=== PATIENT | female | born 1990 | race Caucasian/White ===

== ENCOUNTER 2019-02-22 06:50 | Inpatient (IN) | payer OTHER ==
[~2019-02-22] VITALS: Ht 160 cm; Wt 93.8 kg
[2019-02-22 07:12] VITALS: Ht 160 cm; Wt 93.8 kg
--- NOTE | 2019-02-22 07:55 | HP ---
Date/Time of Note Date/Time of Note DATE: 02/22/19 TIME: 07:49 OB - History Hx of Present Free Text/Dictation 28 YO with IUP at 39 weeks with EDC 03/01/2019 who reports to L&D in early labor. she is motivated to have unmedicated labor and she wants to be admitted in active labor. she declined augmentation/induction. she wants to reexamined and if her cervical exam did not change, then she would like to go home. she denies vaginal bleeding or loss of fluid per vagina. she report good movements. she denies headache, visual changes o RUQ pain. Care: Good Care Ultrasounds: Normal mid trimester US Obstetrical Complications: None Medical Complications: None Past Family/Social History * Past Medical, Surgical, Family and Obstetric Histories reviewed from chart. OB Admission Exam Physical Exam HEENT: WNL Heart: Rhythm Normal Lungs: Clear, Equal Abdomen: WNL Extremities: Normal Reflexes: Normal Cervical Dilatation: 2cm Effacement: Other (90%) Membranes: Intact Accelerations: Accelerations Present Decelerations: No Decelerations Varibility: Moderate OB Assessment/Plan Other Assessment: here for labor evaluation. IUP at 39 weeks Other plan: may be discharged if normal BPP and no cervical change ANDRES MOHAN MD Feb 22, 2019 07:55
[2019-02-22] MEDS: LACTATED RINGER'S 1,000 ML IV SCH ×3 (10:27→19:11)
[2019-02-22] MEDS ORDERED: METHYLERGONOVINE 0.2 MG INJ IM PRN (10:30)
[2019-02-22] MEDS ORDERED: BUTORPHANOL 2 MG INJ IV PRN (10:30)
[2019-02-22] MEDS ORDERED: CARBOPROST 250 MCG INJ IM PRN (10:30)
[2019-02-22] MEDS ORDERED: MISOPROSTOL 200 MCG TAB PR PRN (10:30)
[2019-02-22] MEDS ORDERED: OXYTOCIN 30 UNITS/LR 500 ML IV SCH ×2 (10:30)
[2019-02-22] MEDS ORDERED: LIDOCAINE 1% (MPF) 30 ML INJ INJ PRN (10:30)
[2019-02-22] MEDS ORDERED: OXYTOCIN 30 UNITS/LR 500 ML IV PRN ×2 (10:30→18:00)
--- NOTE | 2019-02-22 10:49 | PREAC ---
Date/Time of Note Date/Time of Note DATE: 02/22/19 TIME: 10:48 Anesthesia Eval and Record Evaluation Time Pre-Procedure Interview DATE: 02/22/19 TIME: 10:48 Age 28 Sex female NPO: 8 hrs Preoperative diagnosis intrauterine Planned procedure labor epidural Past Medical History Past Medical History: Includes : : (1), Para: (0), Gestational age: (39) Surgery & Anesthesia Issues No known issue Meds Anticoagulation: No Beta Ignacia within 24 hr: No Reason Beta Ignacia not given: Pt. not on B-Ignacia Current Medications Lactated Ringer's 1,000 ml @ 125 mls/hr Q8H IV Last administered on 02/22/19at 10:27; Admin Dose 125 MLS/HR; Start 02/22/19 at 10:18 Butorphanol Tartrate (Stadol) 2 mg Q2H PRN IV .PAIN SCALE 6-10; Start 02/22/19 at 10:30 Lidocaine (Xylocaine 1% (Mpf)) 30 ml ONCE PRN INJ .EPISIOTOMY; Start 02/22/19 at 10:30 Oxytocin/Lactated Ringer's 500 ml @ 500 mls/hr ONCE POST IV ; Start 02/22/19 at 10:30 Oxytocin/Lactated Ringer's 500 ml @ 125 mls/hr POST IV ; Start 02/22/19 at 10:30 Oxytocin/Lactated Ringer's 500 ml @ 0 mls/hr ONCE PRN IV .VAGINAL BLEEDING; Start 02/22/19 at 10:30 Methylergonovine Maleate (Methergine) 0.2 mg ONCE PRN IM .VAGINAL BLEEDING; Start 02/22/19 at 10:30 Carboprost Tromethamine (Hemabate) 250 mcg ONCE PRN IM .VAGINAL BLEEDING; Start 02/22/19 at 10:30 Misoprostol (Cytotec) 1,000 mcg ONCE PRN IL .VAGINAL BLEEDING; Start 02/22/19 at 10:30 Meds reviewed: Yes Allergies Coded Allergies: No Known Allergy (Unverified , 02/22/19) Allergies Reviewed: Yes Labs/Studies Labs Reviewed: Reviewed by anesthesiologist Result Diagram: 02/22/19 1020 Laboratory Tests 02/22/19 10:20 test: N/A Pre-procedure Exam Airway: Adequate mouth opening, Adequate thyromental dist Mallampati: Mallampati II Teeth: Normal Lung: Normal Heart: Normal ASA Physical Status ASA physical status: 2 Emergency: None Planned Anesthetic Neuraxial: Epidural Planned Pain Management Epidural Pre-operative Attestations Prior to commencing anesthesia and surgery, the patient was re-evaluated, there was verification of: *The patient's identity *The results of appropriate recent lab work and preoperative vital signs *The above evaluation not changing prior to induction *Anesthetic plan, risk benefits, alternative and complications discussed with patient/family; questions answered; patient/family understands, accepts and wishes to proceed. FATIMAH TROY MD Feb 22, 2019 10:49
[2019-02-22] MEDS ORDERED: ROPIVACAINE 0.2% 100 ML ONE (10:51)
[2019-02-22] MEDS ORDERED: DIPHENHYDRAMINE 50 MG INJ IV PRN (11:00)
[2019-02-22] MEDS ORDERED: ONDANSETRON 4 MG INJ IV PRN (11:00)
[2019-02-22] MEDS ORDERED: NALOXONE (0.4 MG/ML) INJ IV PRN (11:00)
--- NOTE | 2019-02-22 11:27 | PAC ---
Date/Time of Note Date/Time of Note DATE: 02/22/19 TIME: 11:23 Post-Anesthesia Notes Post-Anesthesia Note Activity: WNL Respiratory function: WNL Cardiovascular function: WNL Mental status: Baseline Pain reasonably controlled: Yes Hydration appropriate: Yes Nausea/Vomiting absent: Yes Comments BP: 120/72 HR: 72 RR: 15 SaO2: 100 T: 98 FATIMAH TROY MD Feb 22, 2019 11:27
[2019-02-22] MEDS: FENTAnyl 2MCG/ML-ROPIV 0.2% 100 ML BAG EPI SCH ×2 (16:43→21:28)
--- NOTE | 2019-02-22 23:56 | LDN ---
Date/Time of Note Date/Time of Note DATE: 02/22/19 TIME: 23:56 Delivery Summary 28 years old 3 para 0-0-2-0 with single intrauterine at 39 weeks with a BIMAL of 03/01/2019 delivered a viable male over first-degree left labia minora and second-degree vaginal laceration. Nose and mouth suctioned. Rest of body delivered. Cord clamped and cut after stopping pulsation. Baby given to the nurse. Placenta delivered spontaneously and intact with three-vessel cord. Laceration repaired with the 3-0 chromic with SH needle and 2-0 Vicryl. Patient tolerated procedure well Time of delivery 23:14 Weight 3605 g - 7 pound 15 ounces Height 19 3/4 inches 8 at 1 minutes and 9 at 5 minutes. EBL 250 mL Weeks of Gestation 39 weeks Placenta Delivered: Spontaneously Meconium: none Episiotomy: No Estimated blood loss: 250 Sponge & Needle done & correct: Yes All needle counts correct: Yes Any foreign bodies felt in the: No Infant Delivery Information Sex Sex: male Apgars 1 Minute: 8 5 Minute: 9 10 Minute: 10 Suctioning Nose & mouth suctioned at nelson: Yes Umbilical Cord Umbilical cord with: 3 Vessels Cord presentations: no nuchal cord Cord Blood was obtained: Yes Mother & Baby Disposition Disposition Mom & Baby to Maternity; Good: Yes ALECIA DUNBAR Feb 22, 2019 23:56
[2019-02-23] VITALS (7 sets, daily range): BP systolic 104–130; BP diastolic 33–83; PULSE 75–90; RESP 18–20
[2019-02-23] MEDS ORDERED: LACTATED RINGER'S 1,000 ML IV* SCH (01:22)
[2019-02-23] MEDS ORDERED: DEXTROSE 5%-LR 1,000 ML IV SCH (01:22)
[2019-02-23] MEDS ORDERED: MAGNESIUM HYDROXIDE 30ML CUP PO PRN (01:30)
[2019-02-23] MEDS ORDERED: BENZOCAINE 20% 56 ML SPRAY TOP PRN (01:30)
[2019-02-23] MEDS ORDERED: ACETAMINOPHEN 325 MG TAB PO PRN (01:30)
[2019-02-23] MEDS ORDERED: OXYCODONE/ASPIRIN (4.88/325) TAB PO PRN (01:30)
[2019-02-23] MEDS ORDERED: LANOLIN HPA 1 PKT TOP PRN (01:30)
[2019-02-23] MEDS ORDERED: METHYLERGONOVINE 0.2 MG INJ IM PRN (01:30)
[2019-02-23] MEDS ORDERED: OXYTOCIN 30 UNITS/LR 500 ML IV PRN (01:30)
[2019-02-23] MEDS ORDERED: MISOPROSTOL 200 MCG TAB PR PRN (01:30)
[2019-02-23] MEDS ORDERED: WITCH HAZEL/GLYCERIN PAD PR PRN (01:30)
[2019-02-23] MEDS ORDERED: ZOLPIDEM 5 MG TAB PO PRN (01:30)
[2019-02-23] MEDS ORDERED: ONDANSETRON 4 MG INJ IV PRN (01:30)
[2019-02-23] MEDS ORDERED: DIPHENHYDRAMINE 50 MG INJ IV PRN (01:30)
[2019-02-23] MEDS ORDERED: DIBUCAINE 1% 30 GM OINT TOP PRN (01:30)
[2019-02-23] MEDS ORDERED: CARBOPROST 250 MCG INJ IM PRN (01:30)
[2019-02-23] MEDS: IBUPROFEN 600 MG TAB PO SCH ×4 (06:09→23:41)
--- NOTE | 2019-02-23 07:54 | DS ---
Date/Time of Note Date/Time of Note DATE: 02/23/19 TIME: 07:53 Obstetrical Discharge Record Final Diagnosis Final Diagnosis: Term delivered Vaginal Delivery Obstetrical Delivery: Spontaneous Complications Augmentation: No Induction: No Rupture of Membranes: No Condition on Discharge Physical Assessment Voiding: Yes Bowel Movement: Yes Breast: Soft, non-tender, Filling Fundus: Firm Abdomen and Incision: soft, not tender Calf Tenderness: No Patient Condition: Good ANDRES MOHAN MD Feb 23, 2019 07:54
--- NOTE | 2019-02-23 08:59 | OPR ---
Date/Time of Note Date/Time of Note DATE: 02/23/19 TIME: 08:56 Operative Report Procedure Date: Feb 23, 2019 Preoperative Diagnosis IUP at 39.4 weeks h/o pubic symphysis separation with last Patient desires primary c/s Postoperative Diagnosis Same Operation/Procedure Performed Primary Low Transverse delivery Surgeon Chandrika Rubin MD Store Host Dr. Beyer Anesthesia Type: spinal Estimated Blood Loss: other (700 ml) Transfusion none Specimen none Grafts/Implants none Tubes/Drains Arechiga Cath Complications none Pt Condition Post Procedure: stable Disposition: PACU Procedure Description The risks, benefits, indications, alternatives of procedure including, but not limited to risk of infection, bleeding, damage to other organs, bowel, bladder, hernia formation, scar formation, possibility of blood transfusions discussed with patient. She was allowed to ask questions. All her questions were answered. Informed consent was obtained. DESCRIPTION OF PROCEDURE: She was taken to the operating room. Spinal anesthesia was induced. She was prepped and draped in the usual sterile fashion. Surgical time out one. Anesthesia was tested to be adequate. With permission from anesthesiologist, a knife was used to make a Pfannenstiel skin incision. The incision was taken down in layers. The fascia was cut, undermined and from the underlying muscle using sharp and blunt dissection. All the bleeders were cauterized. Peritoneum was entered bluntly. A low transverse incision was developed over the uterus. Amniotic fluid was clear and adequate. A viable infant in vertex presentation was delivered without any difficulty. The cord was clamped and cut, handed to awaiting team. Placenta was then delivered. Uterus was exteriorized, wrapped around a moist lap. Inside uterus was cleaned using a dry lap. All residual membranes were removed. The uterine incision was then closed using #1 Monocryl in 2 layers. The uterus was inserted back inside the abdominal cavity. Irrigation was done carefully. Careful evaluation of the uterine incision revealed no further bleeding. The peritoneum and rectus muscles and fascia were evaluated. All bleeders cauterized. Peritoneum was closed using 2-0 Monocryl. At this time, the count was correct. Rectus muscle was reapproximated using 2-0 Monocryl. Rectus fascia was closed using #1 Vicryl. Subcutaneous tissue was cleaned and irrigated. All bleeders cauterized and the skin closed using Insorb. All counts correct. CHANDRIKA RUBIN MD Feb 23, 2019 08:59
[2019-02-23] MEDS: SENNA/DOCUSATE NA (8.6MG/50MG) TAB PO PRN (12:12)
[2019-02-24 04:30] VITALS: BP 115/79; PULSE 66; RESP 18
[2019-02-24] MEDS: IBUPROFEN 600 MG TAB PO SCH ×2 (06:08→11:57)
[2019-02-24 08:00] VITALS: BP 125/79; PULSE 66; RESP 18
[2019-02-24] MEDS: SENNA/DOCUSATE NA (8.6MG/50MG) TAB PO PRN (10:21)
[2019-02-25] MEDS ORDERED: MEASLES,MUMPS,RUBELLA VACCINE INJ SC* ONE (09:00)
[2019-02-25] MEDS ORDERED: DIPHTH/TET/ACEL PERTUSS (ADULT) 0.5 ML VIAL IM* ONE (09:00)
--- NOTE | 2019-02-25 15:07 | DELSUM ---
Delivery Summary A-C Datetime Report Generated by CPN: 02/25/2019 15:07 DELIVERY PERSONNEL Oil Producer: Smith, Martina MATERNAL INFORMATION Delivery Anesthesia: Epidural Medications in Delivery: 30 UNITS OF PITOCIN WITH LR Delivery QBL (ml): 200 Maternal Complications: None LABOR SUMMARY EDC: 03/01/2019 00:00 No. Babies in Womb: 0 Attempted: No Labor Anesthesia: Epidural LABOR INFORMATION Reason for Induction: Not Applicable Onset of Labor: 02/21/2019 23:00 Complete Dilatation: 02/22/2019 21:55 Oxytocin: Augmentation Group B Beta Strep: Negative Steroids Given: None Reason Steroids Not Administered: Not Applicable MEMBRANES Membranes Rupture Method: Spontaneous Rupture of Membranes: 02/22/2019 19:28 Length of Rupture (hr): 3.77 Amniotic Fluid Color: Clear Amniotic Fluid Amount: Large Amniotic Fluid Odor: None STAGES OF LABOR Stage 1 hr: 22 Stage 1 min: 55 Stage 2 hr: 1 Stage 2 min: 19 Stage 3 hr: 0 Stage 3 min: 3 Total Time in Labor hr: 24 Total Time in Labor min: 17 VAGINAL DELIVERY Episiotomy: None Laceration Extension: Second Degree Laceration Type: Perineal; Vaginal Other Laceration: left labial / vaginal Laceration Repair: Yes Initial Vag Sponge Count: 10+10 Final Vag Sponge Count: 20 Initial Vag Sharps Count: 1+2 Final Vag Sharps Count: 3 Sponge Count Correct: Yes; Vaginal Sweep Performed Sharps Count Correct: Yes BABY A INFORMATION Infant Delivery Date/Time: 02/22/2019 23:14 Method of Delivery: Vaginal Born in Route : No : N/A Forceps: N/A Vacuum Extraction: N/A Shoulder Dystocia : N/A SHOULDER DYSTOCIA BABY A Infant Delivery Date/Time: 02/22/2019 23:14 PRESENTATION/POSITION BABY A Presentation: Cephalic Cephalic Presentation: Vertex Vertex Position: Left Occipital Anterior Breech Presentation: N/A PLACENTA INFORMATION BABY A Placenta Delivery Time : 02/22/2019 23:17 Placenta Method of Delivery: Spontaneous Placenta Status: Delivered SCORES BABY A Heart Rate 1 min: >100 bpm Resp Effort 1 min: Good Cry Reflex Irritability 1 min: Cough/Sneeze/Pulls Away Muscle Tone 1 min: Active Motion Color 1 min: Blue/Pale SCORE 1 MIN: 8 Heart Rate 5 min: >100 bpm Resp Effort 5 min: Good Cry Reflex Irritability 5 min: Cough/Sneeze/Pulls Away Muscle Tone 5 min: Active Motion Color 5 min: Body [place], Extremit Blue SCORE 5 MIN: 9 INFORMATION BABY A Gestational Age at Delivery: 39.0 Gestational Status: Full Term- 39- 40.6 Weeks Infant Outcome : Liveborn Condition : Stable Sex: Male IDENTIFICATION/MEDS BABY A ID Band Number: [id number] ID Band Location: Right Leg; Left Arm Sensor Applied: Yes Sensor Number: [id number] Sensor Location : Cord Clamp Vitamin K Given : Not Given Erythromycin Given: Not Given WEIGHT/LENGTH BABY A Birthweight (gm): 3605 Weight (lb): 7 Weight (oz): 15 Length (in): 19.75 Infant Length (cm): 50.17 CORD INFORMATION BABY A No. Cord Vessels: 3 Nuchal Cord : N/A Cord Blood Taken: Yes Infant Suction: Mouth; Nose ASSESSMENT BABY A Infant Complications: None Physical Findings at Delivery: Molding of the Head; Within Normal Limits Infant Respirations: Appears Normal Addiction Social Worker/ALS Called : No Infant Care By: MICHELL TRAN Transferred To: Remains with Mother
== END 2019-02-24 14:30 | disposition home or self-care (01) | DRG 806 ==
LOC: L-D 06:50 → OBT 06:50 → L-D 08:37 → PP1 02-23 01:09
PROVIDERS: ADMIT Specialist; ATTEND Specialist
PROC: 10E0XZZ Delivery of Products of Conception, External Approach (ICD-10-PCS; principal; 2019-02-22)
PROC: 0KQM0ZZ Repair Perineum Muscle, Open Approach (ICD-10-PCS; 2019-02-22)
PROC: 0UQMXZZ Repair Vulva, External Approach (ICD-10-PCS; 2019-02-22)
DX: O70.0 First degree perineal laceration during delivery (principal); O71.4 Obstetric high vaginal laceration alone; Z37.0 Single live birth; Z3A.39 39 weeks gestation of pregnancy
CPT/HCPCS: 62322; 76815; 76818; 85025; 85610; 85730; 86592; 86850; 86900; 86901; 87340; G0463; J2590; J2795; J3010; J7120; J7121